=== PATIENT | male | born 1965 | race Caucasian/White ===

== ENCOUNTER 2021-10-12 14:45 | Inpatient (IN) | payer OTHER ==
[2021-10-12 15:12] VITALS: BMI 24.7
[2021-10-12] MEDS ORDERED: ONDANSETRON *ODT* 4 MG TABLET SL PRN (15:53)
[2021-10-12] MEDS ORDERED: ACETAMINOPHEN 325 MG TABLET (FP) PO PRN ×2 (15:53)
[2021-10-12] MEDS ORDERED: hydrOXYzine PAMOATE 25 MG CAPSULE (FP) PO PRN (15:53)
[2021-10-12] MEDS ORDERED: LOPERAMIDE HCL 2 MG CAPSULE PO PRN (15:53)
[2021-10-12] MEDS ORDERED: MAGNESIUM HYDROX 2400MG/30ML ORAL SUSPENSION 30 ML CUP PO PRN (15:53)
[2021-10-12] MEDS ORDERED: NICOTINE POLACRILEX 2 MG GUM BUC PRN (15:53)
[2021-10-12] MEDS ORDERED: BISMUTH SUBSALICYLATE 524 MG/30 ML PO PRN (15:53)
[2021-10-12] MEDS ORDERED: P-EPHED 60MG/TRIPROLIDI 2.5MG TABLET PO PRN (15:53)
[2021-10-12] MEDS ORDERED: MELATONIN 5 MG TABLETS PO PRN (15:53)
[2021-10-12] MEDS ORDERED: MAG HYDROX/AL HYDROX/SIMETH 30 ML UNIT-DOSE CUP PO PRN (15:53)
[2021-10-12] MEDS ORDERED: IBUPROFEN 400 MG TABLET (FP) PO PRN (15:53)
[2021-10-12] MEDS ORDERED: MAGNESIUM CITRATE 300 ML BOTTLE PO PRN (15:53)
[2021-10-12] MEDS ORDERED: MENTHOL/PHENOL 1 EACH UD MM PRN (15:53)
[2021-10-12] MEDS ORDERED: METHOCARBAMOL 500 MG TABLET PO PRN (15:53)
[2021-10-12] MEDS ORDERED: cloNIDine HCL 0.1 MG TABLET PO PRN (20:07)
[2021-10-12] MEDS ORDERED: methaDONE HCL 10 MG TABLET (FOR DETOX USE ONLY) PO ONE (20:07)
[2021-10-12] MEDS: diazePAM 5 MG TABLET PO SCH (21:33)
[2021-10-12] MEDS ORDERED: THIAMINE HCL 100 MG TABLET (FP) PO SCH (22:00)
[2021-10-13] MEDS: diazePAM 5 MG TABLET PO PRN ×2 (07:35→13:29)
[2021-10-13] MEDS ORDERED: methaDONE HCL 10 MG TABLET (FOR DETOX USE ONLY) ONE (08:00)
[2021-10-13] MEDS ORDERED: PRENATAL VITAMINS W/ FOLIC ACID TABLET (FP) PO SCH (10:00)
[2021-10-13] MEDS: diazePAM 5 MG TABLET PO SCH (10:10)
[2021-10-13 12:11] LABS: HEMATOCRIT 41.9 % (35.4-49); HEMOGLOBIN 14.5 GM/dL (11.7-16.9); MCH 30.1 pg (25.7-33.7); MCHC 34.6 g/dl (32.0-35.9); PLATELET COUNT 194 10^3/uL (134-434); RBC 4.81 M/mm3 (4.00-5.60); RDW 13.8 % (11.9-15.9); WHITE BLOOD COUNT 5.2 K/mm3 (4.0-10.0)
[2021-10-13 12:22] LABS: CALCIUM 9.4 mg/dL (8.5-10.1)
[2021-10-13 12:23] LABS: ALBUMIN 3.8 g/dl (3.4-5.0); BLOOD UREA NITROGEN 14.7 mg/dL (7-18)
[2021-10-13 12:26] LABS: CREATININE 0.9 mg/dL (0.55-1.3)
[2021-10-13 12:27] LABS: BILIRUBIN,TOTAL 1.4 mg/dL (0.2-1)
[2021-10-13 12:29] LABS: TOT PROT 6.8 g/dl (6.4-8.2)
[2021-10-13 12:47] VITALS: BP 123/74; PULSE 86; TEMP 98.2
[2021-10-13] MEDS ORDERED: NICOTINE 10 MG CARTRIDGE (INHALER) IH PRN (13:33)
[2021-10-14] MEDS ORDERED: methaDONE HCL 10 MG TABLET (FOR DETOX USE ONLY) PO ONE (10:00)
[2021-10-16] MEDS ORDERED: methaDONE HCL 10 MG TABLET (FOR DETOX USE ONLY) PO ONE (10:00)
== END 2021-10-13 15:05 | disposition left against medical advice (07) | DRG 894 ==
LOC: EDBD 14:45 → YASAS 14:45 → Y3N 20:39
PROVIDERS: ADMIT Allergy & Immunology; ATTEND Allergy & Immunology
PROC: HZ2ZZZZ Detoxification Services for Substance Abuse Treatment (ICD-10-PCS; principal; 2021-10-12)
DX: F11.23 Opioid dependence with withdrawal (principal); F13.20 Sedative, hypnotic or anxiolytic dependence, uncomplicated; F17.210 Nicotine dependence, cigarettes, uncomplicated; Z86.19 Personal history of other infectious and parasitic diseases
CPT/HCPCS: 36415; 80053; 85027; 86780; 87811; C9803-CS; U0003; U0005

== ENCOUNTER 2021-10-24 18:41 | Inpatient (IN) | payer OTHER ==
[2021-10-24 19:05] VITALS: BMI 27.0
[2021-10-24] MEDS ORDERED: MAGNESIUM HYDROX 2400MG/30ML ORAL SUSPENSION 30 ML CUP PO PRN (19:52)
[2021-10-24] MEDS ORDERED: P-EPHED 60MG/TRIPROLIDI 2.5MG TABLET PO PRN (19:52)
[2021-10-24] MEDS ORDERED: IBUPROFEN 400 MG TABLET (FP) PO PRN (19:52)
[2021-10-24] MEDS ORDERED: MAGNESIUM CITRATE 300 ML BOTTLE PO PRN (19:52)
[2021-10-24] MEDS ORDERED: MENTHOL/PHENOL 1 EACH UD MM PRN (19:52)
[2021-10-24] MEDS ORDERED: ONDANSETRON *ODT* 4 MG TABLET SL PRN (19:52)
[2021-10-24] MEDS ORDERED: ACETAMINOPHEN 325 MG TABLET (FP) PO PRN ×2 (19:52)
[2021-10-24] MEDS ORDERED: MAG HYDROX/AL HYDROX/SIMETH 30 ML UNIT-DOSE CUP PO PRN (19:52)
[2021-10-24] MEDS ORDERED: LOPERAMIDE HCL 2 MG CAPSULE PO PRN (19:52)
[2021-10-24] MEDS ORDERED: DICYCLOMINE HCL 10 MG CAPSULE PO PRN (19:52)
[2021-10-24] MEDS ORDERED: BISMUTH SUBSALICYLATE 524 MG/30 ML PO PRN (19:52)
[2021-10-24] MEDS ORDERED: MELATONIN 5 MG TABLETS PO PRN (19:52)
[2021-10-24] MEDS ORDERED: methaDONE HCL 10 MG TABLET (FOR DETOX USE ONLY) PO ONE (19:55)
[2021-10-24] MEDS ORDERED: cloNIDine HCL 0.1 MG TABLET PO PRN (19:55)
[2021-10-24] MEDS ORDERED: methaDONE HCL 10 MG TABLET (FOR DETOX USE ONLY) ONE (20:32)
[2021-10-25] MEDS ORDERED: hydrOXYzine PAMOATE 25 MG CAPSULE (FP) PO ONE (02:08)
[2021-10-25] MEDS: hydrOXYzine PAMOATE 25 MG CAPSULE (FP) PO PRN ×3 (02:24→17:51)
[2021-10-25] MEDS ORDERED: diazePAM 5 MG TABLET ONE (08:38)
[2021-10-25] MEDS ORDERED: METHOCARBAMOL 500 MG TABLET ONE (08:38)
[2021-10-25] MEDS ORDERED: cloNIDine HCL 0.1 MG TABLET ONE (08:41)
[2021-10-25] MEDS: METHOCARBAMOL 500 MG TABLET PO PRN ×2 (08:43→14:59)
[2021-10-25] MEDS: diazePAM 5 MG TABLET PO PRN ×2 (08:43→14:59)
[2021-10-25] MEDS ORDERED: methaDONE HCL 10 MG TABLET (FOR DETOX USE ONLY) ONE (09:33)
[2021-10-25] MEDS: PRENATAL VITAMINS W/ FOLIC ACID TABLET (FP) PO SCH (10:20)
[2021-10-25] MEDS: NICOTINE 10 MG CARTRIDGE (INHALER) IH PRN (10:24)
[2021-10-25] MEDS: THIAMINE HCL 100 MG TABLET (FP) PO SCH ×2 (10:33→22:35)
[2021-10-25] MEDS ORDERED: SERTRALINE HCL 50 MG TABLET (FP) PO ONE (11:52)
[2021-10-25 13:19] LABS: HEMATOCRIT 39.5 % (35.4-49); HEMOGLOBIN 13.5 GM/dL (11.7-16.9); MCH 29.5 pg (25.7-33.7); MCHC 34.2 g/dl (32.0-35.9); MEAN CELL VOLUME 86.3 fl (80-96); MEAN PLT VOLUME 7.5 fl (7.5-11.1); PLATELET COUNT 214 10^3/uL (134-434); RBC 4.58 M/mm3 (4.00-5.60); RDW 13.4 % (11.9-15.9); WHITE BLOOD COUNT 5.2 K/mm3 (4.0-10.0)
[2021-10-25 13:25] LABS: CALCIUM 8.5 mg/dL (8.5-10.1)
[2021-10-25 13:26] LABS: ALBUMIN 3.1 g/dl (3.4-5.0); BLOOD UREA NITROGEN 11.6 mg/dL (7-18)
[2021-10-25 13:29] LABS: CREATININE 0.9 mg/dL (0.55-1.3)
[2021-10-25 13:30] LABS: BILIRUBIN,TOTAL 0.7 mg/dL (0.2-1); TOT PROT 6.5 g/dl (6.4-8.2)
[2021-10-26] MEDS: diazePAM 5 MG TABLET PO PRN ×2 (09:02→14:07)
[2021-10-26] MEDS ORDERED: methaDONE HCL 10 MG TABLET (FOR DETOX USE ONLY) PO ONE (10:00)
[2021-10-26] MEDS ORDERED: SERTRALINE HCL 50 MG TABLET (FP) PO SCH (10:00)
[2021-10-26] MEDS: PRENATAL VITAMINS W/ FOLIC ACID TABLET (FP) PO SCH (10:12)
[2021-10-26 13:09] VITALS: TEMP 97.8
[2021-10-26] MEDS: NICOTINE 10 MG CARTRIDGE (INHALER) IH PRN (13:59)
[2021-10-26] MEDS: METHOCARBAMOL 500 MG TABLET PO PRN (14:07)
[2021-10-26 19:08] VITALS: BP 119/66; PULSE 67
[2021-10-28 00:06] LABS: SARS-CoV-2 NAA Not Detected (Not Detected)
[2021-10-28] MEDS ORDERED: methaDONE HCL 10 MG TABLET (FOR DETOX USE ONLY) PO ONE (10:00)
== END 2021-10-26 18:45 | disposition left against medical advice (07) | DRG 894 ==
LOC: YASAS 18:41 → Y6N 10-25 09:07
PROVIDERS: ADMIT Allergy & Immunology; ATTEND Allergy & Immunology
PROC: HZ2ZZZZ Detoxification Services for Substance Abuse Treatment (ICD-10-PCS; principal; 2021-10-25)
DX: F11.23 Opioid dependence with withdrawal (principal); F17.210 Nicotine dependence, cigarettes, uncomplicated; F20.9 Schizophrenia, unspecified; F41.9 Anxiety disorder, unspecified; F32.A Depression, unspecified; G47.00 Insomnia, unspecified; Z86.19 Personal history of other infectious and parasitic diseases
CPT/HCPCS: 36415; 80053; 85027; 86780; 87811; C9803-CS; J0735; U0003; U0005